=== PATIENT | female | born 1945 | race Caucasian/White ===

== ENCOUNTER → 2019-07-16 | Outpatient (CLI) | payer OTHER ==
[~2019-07-16] MED LIST: AMBIEN 5 MG TABL5 M1 PO; IMITREX 50 MG T50 MG PO; KEFLEX500 MG PO
== END ==
LOC: M.RAD 04-09 14:24
DX: Z12.31 Encounter for screening mammogram for malignant neoplasm of breast (principal); M81.0 Age-related osteoporosis without current pathological fracture; Z88.2 Allergy status to sulfonamides; Z78.0 Asymptomatic menopausal state

== ENCOUNTER → 2021-08-11 | Outpatient (CLI) | payer OTHER | LOC: M.RAD 08-09 10:00 | DX: M81.0 Age-related osteoporosis without current pathological fracture (principal) ==